=== PATIENT | female | born 1965 | race Caucasian/White ===

== ENCOUNTER 2022-05-20 23:24 | Emergency (ER) | payer OTHER ==
[2022-05-20 23:50] LABS: EOSINOPHIL 4.5 % (0-5); HCT 37.2 % (37.0-47.0); HGB 12.1 g/dl (12.5-16.0); LYMPHOCYTE 49.2 % (15-48); MCH 27.2 pg (25.0-31.0); MCHC 32.5 g/dL (32.0-36.0); MCV 83.6 fL (78.0-100.0); MONOCYTE 8.8 % (0-12); MPV 10.1 fL (6.0-9.5); NRBC 0; PLT 207 K/uL (150-400); RBC 4.45 M/uL (4.20-5.40); RDW 14.8 % (11.5-14.0); WBC 4.2 K/uL (4.0-10.5)
[2022-05-20 23:55] LABS: INR 0.96 (0.9-1.2); PROTHROMBIN TIME 12.2 SECONDS (11.8-13.4); PTT 30.8 SECONDS (24.4-34.7)
[2022-05-21 00:01] LABS: BILIRUBIN - TOTAL 0.3 mg/dL (0.2-1.0); BUN/CREAT RATIO (CALC) 31.3 RATIO; CREATININE 0.67 mg/dL (0.51-0.95); GLOBULIN (CALCULATION) 3.1 g/dL; POTASSIUM 3.3 mmol/L (3.5-5.1); TOTAL PROTEIN 7.1 g/dL (6.4-8.2)
[2022-05-21 00:20] LABS: BILIRUBIN NEGATIVE (NEGATIVE); BLOOD NEGATIVE Ery/uL (NEGATIVE); CLARITY CLEAR (CLEAR); COLOR YELLOW (YELLOW); GLUCOSE (U) NORMAL (NORMAL); LEUKOCYTES 1+ Leu/uL (NEGATIVE); NITRITE NEGATIVE (NEGATIVE); PROTEIN NEGATIVE (NEGATIVE); UROBILINOGEN 0.2 mg/dL (0.2-1.0)
[2022-05-21 00:27] LABS: BACTERIA 1+
[2022-05-21 00:50] LABS: CORONAVIRUS 2019 SARS-COV-2 NEGATIVE (NEGATIVE); INFLUENZA A NAA NEGATIVE (NEGATIVE)
== END 2022-05-21 01:20 | disposition home or self-care (01) ==
LOC: FER 23:24
PROVIDERS: Internal Medicine
DX: I11.0 Hypertensive heart disease with heart failure (principal); I50.9 Heart failure, unspecified; R51.9 Headache, unspecified; E11.9 Type 2 diabetes mellitus without complications; E78.5 Hyperlipidemia, unspecified; Z20.822 Contact with and (suspected) exposure to COVID-19; Z79.82 Long term (current) use of aspirin; Z79.899 Other long term (current) drug therapy
CPT/HCPCS: 36415; 70450; 71250; 80053; 81001; 83880; 84145; 84484; 85025; 85610; 85730; 87088; 93005; J1885; J2765; U0002